=== PATIENT | male | born 1980 | race Two or more races ===

== ENCOUNTER 2020-10-18 08:43 | Emergency (ER) | payer MEDICAID ==
[~2020-10-18] VITALS: Ht 162.6 cm; Wt 74.0 kg
[2020-10-18 09:07] VITALS: BP 106/60
[2020-10-18 09:23] LABS: COVID AG,FIA SOURCE NASOPHARYNGEAL
== END 2020-10-18 10:31 | disposition home or self-care (01) ==
LOC: EMS 08:47
DX: U07.1 COVID-19 (principal); J02.9 Acute pharyngitis, unspecified; M79.10 Myalgia, unspecified site
CPT/HCPCS: 71045; 99284

== ENCOUNTER 2024-12-26 21:10 | Emergency (ER) | payer MEDICAID ==
[~2024-12-26] VITALS: Ht 162.6 cm; Wt 59.1 kg
[2024-12-26 21:14] VITALS: TEMP 98.4
[2024-12-26 22:33] LABS: PLATELET COUNT (AUTO) 531 K/uL (150-450); RED BLOOD CELL COUNT(AUTO) 4.46 MIL/uL (4.50-5.90); RED CELL DISTRIBUTION WIDTH 14.8 % (11.5-14.5); WHITE BLOOD COUNT (AUTO) 13.4 K/uL (4.5-11.0)
[2024-12-26 22:39] LABS: CALCIUM, TOTAL 8.8 mg/dL (8.8-10.5); CREATININE 0.60 mg/dL (0.60-1.30); GLOMERULAR FILTR. RATE CALC > 60 mL/min (>60); GLUCOSE,RANDOM 114 mg/dL (70-110); SODIUM SERUM 138 mmol/L (136-145); UREA NITROGEN, BLOOD 7 mg/dL (7-18)
[2024-12-27] MEDS: DOXYCYCLINE HYCLATE 100 MG TABLET PO ONE (00:16)
[2024-12-27 00:21] VITALS: BP 124/89; PULSE 104; RESP 18; O2SAT 99
[2024-12-27] MEDS ORDERED: DOXY-354 PO (00:34)
== END 2024-12-27 02:16 | disposition home or self-care (01) ==
LOC: EMS 21:10
DX: L02.416 Cutaneous abscess of left lower limb (principal); L03.116 Cellulitis of left lower limb
CPT/HCPCS: 80048; 85025; 99283